=== PATIENT | female | born 1950 | race Caucasian/White ===

== ENCOUNTER → 2016-11-24 | Outpatient (CLI) | payer BC ==
[~2016-11-24] MED LIST: CALC500T83 PO; GLUC1CAP35 PO; MULT60CA PO; OMEG10007 PO; OXYC1TAB3 PO; PRLSR20 PO; TRIM100T PO
== END | disposition home or self-care (01) ==
LOC: C.PAPS 11:05
PROVIDERS: ATTEND Obstetrics & Gynecology
DX: Z01.419 Encounter for gynecological examination (general) (routine) without abnormal findings (principal)

== ENCOUNTER → 2017-05-03 | Outpatient (CLI) | payer OTHER, MEDICARE | END | disposition home or self-care (01) | LOC: C.LABBC 09:21 | PROVIDERS: ATTEND Physician Assistant | DX: Z00.00 Encounter for general adult medical examination without abnormal findings (principal) ==

== ENCOUNTER 2017-06-13 09:56 | Emergency (ER) | payer OTHER, MEDICARE ==
[~2017-06-13] VITALS: Ht 154.9 cm; Wt 69.8 kg
[2017-06-13 10:04] VITALS: TEMP 36.8; Ht 154.9 cm; Wt 69.8 kg
[2017-06-13] MEDS ORDERED: FENTANYL CITRATE INJ 50 MCG/1 ML 2 ML VIAL IV STA (10:29)
[2017-06-13] MEDS ORDERED: PRLSR20 PO (10:42)
[2017-06-13] MEDS ORDERED: TRIM100T PO (10:42)
[2017-06-13] MEDS ORDERED: CALC500T83 PO (10:42)
[2017-06-13] MEDS ORDERED: GLUC1CAP35 PO (10:42)
[2017-06-13] MEDS ORDERED: MULT60CA PO (10:42)
[2017-06-13] MEDS ORDERED: OMEG10007 PO (10:42)
--- NOTE | 2017-06-13 11:50 | DIAGNOSTIC IMAGING REPORT ---
L RIBS UNILATERAL WITH PA CHEST CLINICAL HISTORY: left lower rib pain s/p fall COMPARISON STUDY: Chest 01/17/2015. FINDINGS: Moderate dextroscoliosis of the thoracic spine. No pneumothorax. No pleural effusions. Moderate hiatus hernia, unchanged. The lungs are clear. The heart remains mildly enlarged. Slightly displaced left posterior 10th rib fracture. IMPRESSION: Slightly displaced left posterior 10th rib fracture. No pneumothorax. Electronically signed by: Devon Wellington M.D. 06/13/2017 11:49 AM Dictated Date/Time: 06/13/2017 11:47 AM
[2017-06-13] MEDS ORDERED: HYDROmorphone INJ 1 MG/ML SYR IV STA (12:08)
[2017-06-13] MEDS ORDERED: ONDANSETRON INJ 2 MG/ML 2 ML VIAL ONE (12:41)
[2017-06-13] MEDS ORDERED: OXYC1TAB3 PO (13:00)
--- NOTE | 2017-06-13 13:02 | EMERGENCY ROOM VISIT NOTE ---
History Report prepared by Josiah: Edson Skinner Under the Supervision of: Dr. Redd Montes M.D. First contact with patient: 10:21 Chief Complaint: RIB PAIN Stated Complaint: RIB PAIN History of Present Illness The patient is a 67 year old female who presents to the Emergency Room by EMS with complaints of constant left rib pain s/p fall occurring four days ago. She states that she was walking down stairs when she missed a step and fell onto a metal railing. She states that she then sneezed today and began experiencing significantly more pain. The patient also complains of nausea. Her pain is increased with deep breathing. She denies urinary symptoms, abdominal pain, headache, rashes, leg swelling, loss of continence, weakness, or neck pain. The patient has a history of kidney stones, but states that her symptoms do not feel similar. Source of History: patient Onset: Four days ago Position: other (left ribs) Timing: constant Modifying Factors (Worsening): breathing (deep) Associated Symptoms: + nausea, No headache, No abdominal pain, No urinary symptoms, No weakness, No rash Note: The patient denies leg swelling, or loss of continence. Review of Systems See HPI for pertinent positives & negatives. A total of 10 systems reviewed and were otherwise negative. Past Medical & Surgical Medical Problems: (1) Kidney stone (2) No Known Active Medical Problems Family History No pertinent family history stated. Social History Smoking Status: Never Smoker Marital Status: Housing Status: lives with family Current/Historical Medications Scheduled Calcium (Calcium), 500 MG PO DAILY Fish Oil ([place]-3), 1 CAP PO DAILY Kjfrrrjcaww-Inmrbvnveut-Lrt C- (Glucosamine Chondroitin), 1 CAP PO BID Multiple Vitamins W/ Minerals (Preservision Areds 2), 1 CAP PO BID Omeprazole (Prilosec), 20 MG PO DAILY Trimethoprim (Proloprim), 100 MG PO DIRECTED Scheduled PRN Oxycodone Immediate Rel Tab (Roxicodone Ir), 1-2 TAB PO Q4H PRN for Severe Pain Allergies Coded Allergies: Sulfa Antibiotics (Unverified Allergy, Unknown, HIVES, 06/13/17) Nitrofurantoin (Unverified Adverse Reaction, Severe, ALL OVER BODY ACHES, 06/13/17) Physical Exam Vital Signs Date Time Temp Pulse Resp B/P (MAP) Pulse Ox O2 Delivery O2 Flow Rate FiO2 06/13/17 13:27 73 18 114/78 94 Room Air 06/13/17 11:39 79 20 134/72 97 Room Air 06/13/17 10:08 79 06/13/17 10:04 36.8 84 20 161/94 97 Room Air Physical Exam GENERAL: Patient is uncomfortable appearing and in moderate distress. HEENT: No acute trauma, normocephalic atraumatic, mucous membranes moist, no nasal congestion, no scleral icterus. NECK: No stridor, no adenopathy, no meningismus, trachea is midline. LUNGS: No dyspnea. Clear to auscultation and equal bilaterally. No wheeze, no rhonchi. HEART: Regular rate and rhythm. No murmurs, rubs, gallops appreciated. ABDOMEN: Soft, nontender, bowel sounds positive, no masses appreciated, no peritonitis. BACK: No midline tenderness, no CVA tenderness MUSCULOSKELETAL: Severe tenderness of the left lower lateral ribs. Normal motion all extremities, no cyanosis, no edema. NEUROLOGIC: Alert and oriented, no acute motor or sensory deficits, no focal weakness, cranial nerves grossly intact. SKIN: No rash, no jaundice, no diaphoresis. Medical Decision & Procedures ER Provider Diagnostic Interpretation: Radiology results and stated below per my review and radiologist interpretation: L RIBS UNILATERAL WITH PA CHEST FINDINGS: Moderate dextroscoliosis of the thoracic spine. No pneumothorax. No pleural effusions. Moderate hiatus hernia, unchanged. The lungs are clear. The heart remains mildly enlarged. Slightly displaced left posterior 10th rib fracture. IMPRESSION: Slightly displaced left posterior 10th rib fracture. No pneumothorax. Electronically signed by: Devon Wellington M.D. 06/13/2017 11:49 AM Medications Administered Medications (Trade) Dose Ordered Sig/Edu Route Start Time Stop Time Status Last Admin Dose Admin Fentanyl Citrate (Fentanyl Inj) 50 mcg NOW STAT IV 06/13/17 10:29 06/13/17 10:33 DC 06/13/17 10:51 50 MCG Hydromorphone HCl (Dilaudid Inj) 1 mg NOW STAT IV 06/13/17 12:08 06/13/17 12:10 DC 06/13/17 12:28 1 MG Ondansetron HCl (Zofran Inj) 4 mg STK-MED ONCE .ROUTE 06/13/17 12:41 06/13/17 12:42 DC 06/13/17 12:45 4 MG Ondansetron HCl (ZOFRAN ODT 4MG Home Pack) 1 homepack STK-MED ONCE .ROUTE 06/13/17 13:19 06/13/17 13:20 DC 06/13/17 13:19 1 HOMEPACK Ondansetron HCl (Zofran Odt) 4 mg STK-MED ONCE .ROUTE 06/13/17 13:19 06/13/17 13:20 DC 06/13/17 13:24 4 MG ED Course 1022: The patient was evaluated in room B8. A complete history and physical exam was performed. 1029: Ordered Fentanyl Inj 50 mcg IV. 1205: I reassessed the patient. Her pain is returning, but she overall feels better. 1208: Ordered Dilaudid Inj 1 mg IV. 1241: Ordered Zofran Inj 4 mg IV. 1255: Reevaluated the patient. She feels much better, but states that she feels numb. Discussed results and discharge instructions: she verbalized understanding and agreement. The patient is ready for discharge. Medical Decision Differential: fracture, dislocation, soft tissue injury, spleen/kidney injury, pneumothorax, amongst other pathologies entertained. 67 yr old female with left rib injury a few days ago, acutely worse after sneezing. She has 10th rib fracture on imaging without pnthorax. No evidence of intraabdominal injury at this time. She is feeling much better with IV narcotics (nausea vomiting though with dialudid). Discussed care of ribs, discussed restrictions/risks narcotics. Reviewed symptoms RTED. Medication Reconcilliation Current Medication List: was personally reviewed by me Blood Pressure Screening Patient's blood pressure: Elevated blood pressure Blood pressure disposition: Referred to PCP Impression Primary Impression: Left rib fracture Scribe Attestation The scribe's documentation has been prepared under my direction and personally reviewed by me in its entirety. I confirm that the note above accurately reflects all work, treatment, procedures, and medical decision making performed by me. Departure Information Dispostion Home / Self-Care Prescriptions Oxycodone Immediate Rel Tab (ROXICODONE IR) 5 Mg Tab 1-2 TAB PO Q4H Y for Severe Pain, #20 TAB Prov: Redd Montes M.D. 06/13/17 Referrals Tigre Aquino M.D. (PCP) Patient Instructions ED Fx Rib, [facility] Additional Instructions You have received a narcotic pain medication prescription. These medications may cause drowsiness and should not be used with other sedative medications. Do not drive, drink alcohol, perform dangerous activities, nor make important decisions after taking these medications. FPC use or inappropriate use may lead to addiction. These medications can cause constipation. Problem Qualifiers Primary Impression: Left rib fracture Encounter type: initial encounter Rib fracture type: single rib Fracture type: closed Qualified Codes: S22.32XA - Fracture of one rib, left side, initial encounter for closed fracture
[2017-06-13] MEDS ORDERED: ONDANSETRON 4MG OD TAB ONE (13:19)
[2017-06-13] MEDS ORDERED: ONDANSETRON HOME PACK 4MG OD TAB ONE (13:19)
[2017-06-13] MEDS ORDERED: NURSING VERBAL MED ORDER ONE (13:30)
[2017-06-13 14:00] VITALS: BP 114/78; PULSE 73; O2SAT 94
[2017-06-13] MEDS ORDERED: DiphenhydrAMINE HCL 50 MG/ML VIAL IM STA (14:03)
== END 2017-06-13 14:29 | disposition home or self-care (01) ==
LOC: EDBD 10:04 → C.EDB 10:05
DX: S22.32XA Fracture of one rib, left side, initial encounter for closed fracture (principal); W10.9XXA Fall (on) (from) unspecified stairs and steps, initial encounter; Y93.01 Activity, walking, marching and hiking; Z87.442 Personal history of urinary calculi

== ENCOUNTER → 2017-11-22 | Outpatient (CLI) | payer OTHER, MEDICARE ==
--- NOTE | 2017-11-22 14:24 | MAMMOGRAPHY REPORT ---
BILATERAL DIGITAL SCREENING MAMMOGRAM TOMOSYNTHESIS WITH CAD: 11/22/2017 CLINICAL HISTORY: Routine screening. TECHNIQUE: Breast tomosynthesis in addition to standard 2D mammography was performed. Current study was also evaluated with a Computer Aided Detection (CAD) system. COMPARISON: Comparison is made to exams dated: 07/21/2015 mammogram, 07/22/2016 mammogram, 4 mammogram, 06/14/2013 mammogram, 06/12/2012 mammogram, and 05/27/2011 mammogram - [facility]. BREAST COMPOSITION: There are scattered areas of fibroglandular density in both breasts. FINDINGS: The parenchymal pattern is unchanged. There are scattered benign rim calcifications bilat erally. No developing mass, architectural distortion or cluster of suspicious microcalcifications is seen in either breast. IMPRESSION: ACR BI-RADS CATEGORY 2: BENIGN There is no mammographic evidence of malignancy. A 1 year screening mammogram is recommended. The pa tient will receive written notification of the results. Approximately 10% of breast cancers are not detected with mammography. A negative mammographic report should not delay biopsy if a clinically suggestive mass is present. Angella Modi M.D. ay/:11/22/2017 11:12:04 Baggage Agent Supervisor: Beto LANCE(R)(M), [facility] letter sent: Normal 1/2 BI-RADS Code: ACR BI-RADS Category 2: Benign
== END | disposition home or self-care (01) ==
LOC: C.MAMM 09:34
PROVIDERS: ATTEND Obstetrics & Gynecology
DX: Z12.31 Encounter for screening mammogram for malignant neoplasm of breast (principal)

== ENCOUNTER 2023-06-16 08:17 | Observation (INO) ==
--- NOTE | 2023-06-14 15:14 | Anesthesiology Consultation ---
Date of Service June 14, 2023 Assessment & Plan (1) Encounter for pre-operative examination: - Infectious disease screening: Per assessment on 06/08/23: No known infectious disease contacts or current infectious disease symptoms. No noted Covid positive test result in past 90 days. - PCP visit (06/13/23 [facility]): "EGD showed normal esophagus, large hiatal hernia.. Plan to get repaired with [facility] on 06/16/23.. Anticipate weight loss with surgery due to expected modified diet" - Cardiology visit (06/14/23 [facility]): "Currently, the patient is doing well -- she noticed more shortness of breath/exertional dyspnea back in the summer time when it was hot and humid, but now she is not having these variable degrees of exertional dyspnea. Patient has not experienced any angina pectoris or anginal equivalent symptoms, overt signs or symptoms of heart failure, nor has she had any symptoms suggestive of dysrhythmia.. Her blood pressure is well controlled. She is tolerating her current medical regimen without adverse side effects. She has not had any low blood pressures or positional lightheadedness on her current medications. Recommend the followin. Continue Diltiazem CD 300 mg daily. 2. Continue Toprol XL 150 mg daily 3. Continue [place] 3 fish oil capsules daily. 4. Continue all other medications as listed. 5. Continue walking. 6. Patient is aware that she should take her beta-stan and calcium channel stan the morning of surgery with sips of water. 7. Avoid dehydration, especially around the time of her upcoming hiatal hernia repair -- as this will worsen her LVOT gradient/obstruction.. Patient is scheduled undergo surgical repair of her large hiatal hernia on 06/16/23, 2 days from now." Chart Review Chart Review: Acceptable Risk for Surgery and Patient NOT seen in Pre Admission Testing History Surgery Operation Date: 06/16/23 09:55 Proposed Procedures p Laparoscopic Hiatal Hernia Repair with Fundoplication - Dwight [place], Height/Weight Height: 4 ft 11 in Weight: 59.874 kg Allergies Allergy/AdvReac Type Severity Reaction Status Date / Time hydromorphone Allergy Intermediate Vomiting Verified 06/14/23 11:37 Sulfa (Sulfonamide Allergy Intermediate Hives Verified 06/14/23 15:03 Antibiotics) nitrofurantoin AdvReac Severe Diffuse Verified 06/14/23 15:03 body aches amlodipine AdvReac Intermediate Jittery Verified 06/14/23 15:03 Medications Home Medications Medication Instructions Recorded Confirmed Last Taken cholecalciferol (vitamin D3) 50 2,000 unit PO QAM 11/16/18 06/14/23 05/01/23 mcg (2,000 unit) capsule (Vitamin D3) omega 3 350 mg-dha 235 mg-epa 90 1 cap PO QAM 11/16/18 06/14/23 05/01/23 mg-fish oil 597 mg capsule,delay rel ([place]-3) glucosamine-chondroitin 500 mg-400 1 tab PO BID 05/01/19 06/14/23 05/01/23 mg tablet qkpihgqk-pfk-omndcr 5 mg-zeaxanth 2 cap PO BID #30 caps 02/02/21 06/14/23 05/01/23 1 mg-bilberry 7.5 mg-herbal capsule (Macular Health Formula) calcium 600 mg capsule 600 mg PO QAM 01/06/22 06/14/23 05/01/23 trimethoprim 100 mg tablet 100 mg PO ONCE PRN postcoital #90 04/27/23 06/14/23 Unknown tabs diltiazem HCl 300 mg 300 mg PO QAM 06/08/23 06/14/23 Unknown capsule,extended release 24 hr metoprolol succinate 100 mg 100 mg PO QAM 06/08/23 06/14/23 Unknown tablet,extended release 24 hr metoprolol succinate 50 mg 50 mg PO QAM 06/08/23 06/14/23 Unknown tablet,extended release 24 hr Past Medical History Medical History Hypertrophic cardiomyopathy Follows with [facility] cardio Arthritis Hx of recurrent urinary tract infection Follows with Dr. Real History of kidney stones GERD (gastroesophageal reflux disease) History of TMJ disorder resolved Macular degeneration History of COVID-19 04/2021- sinus congestion > "resolved" 04/11/23 (home test)- mild symptoms, tx w/paxlovid > "resolved" Hiatal hernia Hyperlipidemia Per records, patient denies Medullary sponge kidney Osteopenia Paroxysmal supraventricular tachycardia Premature ventricular contractions Thoracogenic scoliosis Past Family History Family History Mother , AGE 77 Diabetes Stroke Sister Breast cancer Cancer BREAST Other No family history of adverse response to anesthesia Denies family history of Ovarian cancer Prostate cancer Myocardial infarction Lung cancer Colorectal cancer Past Surgical History Surgical History History of colonoscopy [place] teeth removed History of cataract surgery R/L H/O tubal ligation History of lithotripsy Social History Smoking Status: Never smoker Do You Dip or Chew Tobacco: No Hx Alcohol Use: Yes Alcohol type: wine alcohol intake frequency: holidays/special occasions only Hx Substance Use: No substance use type: does not use Lab Results Anesthesia Preop Results Results Anesthesia Widget: WBC 5.28 K/ul (4.8-10.8) 06/07/23 Hgb 12.3 g/dl (12.0-16.0) 06/07/23 Hct 39.5 % (37.0-47.0) 06/07/23 Plt 188 K/uL (130-400) 06/07/23 Na 138 mmol/L (136-145) 06/07/23 K 4.3 mmol/L (3.5-5.1) 06/07/23 Cl 107 mmol/L (98-107) 06/07/23 CO2 26 mmol/L (21-32) 06/07/23 BUN 18 mg/dl (6-23) 06/07/23 Creat 0.79 mg/dl (0.6-1.2) 06/07/23 Glucose Level 85 mg/dl (70-99(Fasting)) 06/07/23 TSH 2.743 uIu/ml (0.300-4.500) 06/07/23 HA1c 5.4 % (4.5-5.6) 06/07/23 Testing Electrocardiogram Date: 12/17/22 NSR at 80bpm. iRBBB. Echocardiogram Date: 04/08/23 LVEF > 70%. No RWMA. Severe cLVH. Mitral valve systolic anterior motion with dynamic LVOT obstruction (rest 17mmhg, valsalva 36mmhg- may be underestimate). Mild to moderate MR. Normal estimated PA and RA pressures. Stress Test Date: 01/10/23 Type: exercise Negative exercise stress echo/EKG for ischemia at 97% MPHR. Blunted BP response to exercise. Poor exercise tolerance. Systolic anterior motion of the mitral leaflet noted with stress. Borderline LVOT gradient at rest. Severe LVOT gradient noted following stress. EF 65-70%. 4.5 METS.
[~2023-06-16 08:17] MED LIST changes: -CALC500T83 PO; -GLUC1CAP35 PO; +LR 15ML/HR IV SCH; -MULT60CA PO; -OMEG10007 PO; -OXYC1TAB3 PO; -PRLSR20 PO; -TRIM100T PO; +ceFAZolin 2000MG 2,000 MG/15 ML SYR IV SCH
--- NOTE | 2023-06-16 08:58 | History & Physical Report ---
Date of Service June 16, 2023 Assessment & Plan (1) Large hiatal hernia: Plan: We had had a long discussion regarding her diagnosis potential benefits of repair postoperative expectations going forward as well as potential risks. I have answered all of her questions this morning. We will proceed today with laparoscopic repair of her hiatal hernia, partial gastric fundoplication, and gastropexy. She agrees with the plan. History of Present Illness Primary Care Provider: Rani Vyas Is here for repair of her known hiatal hernia. There is been no changes to her health history since I seen her last in the office. Allergies Allergy/AdvReac Type Severity Reaction Status Date / Time hydromorphone Allergy Intermediate Vomiting Verified 06/16/23 08:41 Sulfa (Sulfonamide Allergy Intermediate Hives Verified 06/16/23 08:41 Antibiotics) nitrofurantoin AdvReac Severe Diffuse Verified 06/16/23 08:41 body aches amlodipine AdvReac Intermediate Jittery Verified 06/16/23 08:41 Home Medications Medication Instructions Recorded Confirmed Type cholecalciferol (vitamin D3) 50 2,000 unit PO QAM 11/16/18 06/16/23 History mcg (2,000 unit) capsule (Vitamin D3) omega 3 350 mg-dha 235 mg-epa 90 1 cap PO QAM 11/16/18 06/16/23 History mg-fish oil 597 mg capsule,delay rel ([place]-3) glucosamine-chondroitin 500 mg-400 1 tab PO BID 05/01/19 06/16/23 History mg tablet taejrzth-fwj-biqfbi 5 mg-zeaxanth 2 cap PO BID #30 caps 02/02/21 06/16/23 Rx 1 mg-bilberry 7.5 mg-herbal capsule (Macular Health Formula) calcium 600 mg capsule 600 mg PO QAM 01/06/22 06/16/23 History trimethoprim 100 mg tablet 100 mg PO ONCE PRN postcoital #90 04/27/23 06/16/23 Rx tabs diltiazem HCl 300 mg 300 mg PO QAM 06/08/23 06/16/23 History capsule,extended release 24 hr metoprolol succinate 100 mg 100 mg PO QAM 06/08/23 06/16/23 History tablet,extended release 24 hr metoprolol succinate 50 mg 50 mg PO QAM 06/08/23 06/16/23 History tablet,extended release 24 hr Past Med/Surg History Medical History Hypertrophic cardiomyopathy Follows with [facility] Arthritis Hx of recurrent urinary tract infection Follows with Dr. Real History of kidney stones GERD (gastroesophageal reflux disease) History of TMJ disorder resolved Macular degeneration History of COVID-19 04/2021- sinus congestion > "resolved" 04/11/23 (home test)- mild symptoms, tx w/paxlovid > "resolved" Hiatal hernia Hyperlipidemia Per records, patient denies Medullary sponge kidney Osteopenia Paroxysmal supraventricular tachycardia Premature ventricular contractions Thoracogenic scoliosis Surgical History History of colonoscopy [place] teeth removed History of cataract surgery R/L H/O tubal ligation History of lithotripsy Family History Mother , AGE 77 Diabetes Stroke Sister Breast cancer Cancer BREAST Other No family history of adverse response to anesthesia Denies family history of Ovarian cancer Prostate cancer Myocardial infarction Lung cancer Colorectal cancer Social History Smoking Status: Never smoker Second Hand Exposure: No; Do You Dip or Chew Tobacco: No; Tobacco Cessation Education Requested by Patient: No Hx Alcohol Use: Yes Alcohol type: wine Alcohol Intake Frequency: 2-4 x/Month Hx Substance Use: No Preferred Language: Tajik Communication Ability: Effective Visual Impairment: Partially Limited Hearing Ability: Normal Improvement Spec Required: No Beliefs That Will Affect Care: None marital status: Current Living Situation: Spouse current occupational status: retired How many Children do You have: 2 Other Information That Helps Us Care for You: No Feels Safe at Home: Yes Safety Concerns: Feels Safe At This Time Childhood Exposure to Second-Hand Smoke: No Diet: regular caffeine: Yes during the past year weight has: remained stable Dental Care, Regularly: Yes Physical Activity Frequency: Daily Seatbelt Use: always Sunscreen Use: Yes Assistive Devices: Glasses Review of Systems All systems reviewed & are unremarkable except as noted in HPI & below Physical Exam Constitutional: WD/WN, vitals as above no acute distress and not ill appearing Eyes: PERRL, conjunctivae normal, anicteric sclerae EOM intact bilaterally ENMT: external ear and nose normal, oropharynx normal Ears: no hearing impairment Neck: trachea midline, no thyromegaly Respiratory: normal respiratory effort; no respiratory distress and does not use accessory muscles Cardiovascular: Rate/Rhythm: regular rate and regular rhythm Gastrointestinal (Abdomen): normal bowel sounds, soft, nontender, no hepatosplenomegaly Skin: no rashes, warm and dry Psychiatric: Orientation: alert, oriented x 3 and cooperative Results & Data Vital Signs (Past 12 Hours) Vital Signs Temp Pulse Resp BP Pulse Ox O2 Del Method 06/16/23 08:36 36.5 C 56 L 20 139/71 97 Room Air
[2023-06-16] MEDS ORDERED: ATROPINE SULFATE 0.1 MG/ML 10ML SYR IV PRN (09:22)
[2023-06-16] MEDS ORDERED: ePHEDrine sulfate 50 MG/ML AMP IV PRN (09:22)
[2023-06-16] MEDS ORDERED: ONDANSETRON INJ 2 MG/ML 2 ML VIAL IV PRN (09:22)
[2023-06-16] MEDS ORDERED: ROCURONIUM BROMIDE 10 MG/ML 5 ML VIAL IV ONE ×2 (09:27→12:11)
[2023-06-16] MEDS ORDERED: PROPOFOL IV EMULSION 10 MG/ML 20 ML VIAL IV ONE (09:27)
[2023-06-16] MEDS ORDERED: ONDANSETRON INJ 2 MG/ML 2 ML VIAL ONE (09:27)
[2023-06-16] MEDS ORDERED: LIDOCAINE 2% 2 ML VIAL/AMP(20MG/ML) INFIL ONE (09:27)
[2023-06-16] MEDS ORDERED: fentaNYL citrate PF 100 MCG/2 ML VIAL ONE (09:27)
[2023-06-16] MEDS ORDERED: DEXAMETHASONE SOD INJ 4 MG/ML VIAL ONE (09:27)
[2023-06-16] MEDS ORDERED: MIDAZOLAM HCL 1 MG/ML 2ML VIAL ONE (10:08)
[2023-06-16] MEDS ORDERED: BUPIVACAINE/EPINEPHRINE 0.5% MPF 1:200,000 30 ML VIAL ONE (10:08)
[2023-06-16] MEDS ORDERED: ACETAMINOPHEN 1000 MG/100 ML IV IV ONE (10:10)
[2023-06-16] MEDS ORDERED: PHENYLEPHRINE HCL 10 MG/ML VIAL ONE (10:11)
[2023-06-16] MEDS ORDERED: KETAMINE HCL 10MG/ML SYR ONE (10:29)
[2023-06-16] MEDS ORDERED: PHENYLEPHRINE 100MCG/ML 10ML SYR IV ONE (11:06)
[2023-06-16] MEDS ORDERED: VASOPRESSIN 20 UNIT/ML VIAL ONE (11:12)
[2023-06-16] MEDS ORDERED: SUGAMMADEX SODIUM 200 MG/2 ML VIAL IV ONE (11:38)
[2023-06-16] MEDS ORDERED: ACETAMINOPHEN W/CODEINE #3 1 TAB PO PRN (12:03)
[2023-06-16] MEDS ORDERED: MoRPHine SULFATE 4 MG/ML 1 ML CARP\\VIAL IM PRN (12:06)
[2023-06-16] MEDS ORDERED: oxyCODONE/ACETAMINOPHEN 5mg/325mg TAB PO PRN ×2 (12:07)
[2023-06-16] MEDS: fentaNYL citrate PF 100 MCG/2 ML VIAL IV PRN ×4 (12:18→12:53)
[2023-06-16] MEDS ORDERED: HYDROmorphone INJ 0.5 MG/0.5 ML SYR IV STA (13:00)
[2023-06-16] MEDS ORDERED: HYDROmorphone INJ 0.5 MG/0.5 ML SYR ONE (13:01)
--- NOTE | 2023-06-16 13:15 | Anesthesiology Progress Note ---
Date of Service June 16, 2023 Anesthesia Post Procedure Vital Signs Vital Signs: Temp Pulse Pulse Resp BP Pulse Ox O2 Del Method 06/16/23 13:10 36.5 C 51 L 13 122/64 95 Nasal Cannula 06/16/23 13:00 36.5 C 54 L 10 L 133/63 95 Nasal Cannula 06/16/23 12:50 50 L 11 L 139/70 95 Nasal Cannula 06/16/23 12:40 52 L 12 130/67 95 Nasal Cannula 06/16/23 12:30 52 L 19 138/69 99 Nasal Cannula 06/16/23 12:20 54 L 23 133/68 99 Oxymask 06/16/23 12:10 55 L 23 137/73 100 Oxymask 06/16/23 12:04 36 C L 53 L 22 134/65 100 Oxymask 06/16/23 08:36 36.5 C 56 L 20 139/71 97 Room Air O2 Flow Rate 06/16/23 13:10 2 06/16/23 13:00 2 06/16/23 12:50 2 06/16/23 12:40 2 06/16/23 12:30 2 06/16/23 12:20 4 06/16/23 12:10 9 06/16/23 12:04 9 06/16/23 08:36 Pain Intensity Abdomen: Pain Intensity: 8 Transfer of Care Handoff Completed per policy Notes Mental Status: alert / awake / arousable Patient Amnestic to Procedure: Yes Nausea / Vomiting: adequately controlled Pain: adequately controlled Airway Patency, RR, SpO2: stable & adequate BP & HR: stable & adequate Hydration State: stable & adequate Anesthetic Complications: no major complications apparent and Pt Satisfied with anesthetic care
[2023-06-16] MEDS ORDERED: ACETAMINOPHEN 325 MG TAB PO PRN (13:42)
[2023-06-16] MEDS: LACTATED RINGER'S 1,000 ML IV SCH ×2 (13:48→21:33)
--- NOTE | 2023-06-16 15:47 | Operative Report ---
PG Post Operative Report Pre & Post Diagnosis Operation Date: 06/16/23 09:55 Pre-Op Diagnosis: Hiatal Hernia Post-Op Diagnosis: Hiatal Hernia I identified the patient and participated in the time-out.: Yes Procedure Operation Date: 06/16/23 09:55 Actual Procedures p Laparoscopic Hiatal Hernia Repair with Parital Fundoplication, posterior gastropexy, enterolysis(Not Applicable) - Dwight Palomino DO Surgeon Dwight Palomino DO Flour Inspector jessica torres Estimated Blood Loss 10 Findings Consistent with Post-Op Diagnosis Specimens none Description of Procedure After informed consent was obtained the patient was taken to the operating room and placed in supine position. After successful intubation the abdomen was sterilely prepped and draped in usual fashion. I Made a supraumbilical incision with 11 blade scalpel and carried this down through the soft tissue using cautery. Anterior fascia was opened with cautery and 2 #0 Vicryl stay sutures were placed. Peritoneum was entered with blunt finger penetration and a finger sweep performed. A 12 m trocar was placed and the abdomen was insufflated to 18 mmHg. Laparoscope was inserted and the abdomen examined in 360 degrees. There were some adhesions from the omentum and transverse colon to the anterior abdominal wall. I was able to place a right flank 5 mm port, a right upper quadrant 5 mm port ,subxiphoid 12 mm port and a left upper quadrant 5 mm port. We used a harmonic scalpel to take down adhesions. The liver retractor was used throughout the case to elevate the left lobe of the liver for exposure. Once we elevated the liver there was a large hiatal hernia with gastric incarceration. Approximately 50% of the stomach was incarcerated within the defect. We were able to manually reduce it. I began by taking down the gastrohepatic ligament medially using the harmonic scalpel. We continued up along the right radha of the diaphragm and took down the hernia sac in 360 degrees. We carried over to the left radha of the diaphragm until the entire sac was removed. Next we had anesthesia pass a 50 [place]ic bougie which she was able to quite easily. Next I reapproximated the right and left crura of the diaphragm. I began by placing a posterior stitch using Endo Stitch device with 0 Surgidac. I then completed the closure by placing sutures anteriorly again using 0 Surgidac. Once the diaphragmatic hernia was completely closed I then took down the top 3 or 4 short gastric vessels using the harmonic scalpel. A retrogastric window was made manolo wilcox. I was able to grasp the fundus of the stomach and pulled through the retrogastric window. I was able to do this quite easily. I was able to easily perform a shoeshine test. Posterior gastropexy was performed again using 0 Surgidac and securing the posterior aspect of the fundus to the right crura of the diaphragm. I then completed the 270 partial wrap given using 0 Surgidac and securing the preesophageal fascia/anterior portion of the stomach first to the fundus of the stomach on the medial side and then to the body of the stomach on the lateral side. We then removed the bougie which was easily withdrawn. The wrap was nice and floppy. The repair appeared solid. There was adequate hemostasis. No other abnormal was identified. The liver retractor and trocars were all removed under direct vision. The fascia of the camera port was closed in [id number] fashion. all the wounds were irrigated and closed using 4 Monocryl in subcuticular technique. Marcaine with epinephrine was injected for postoperative analgesia and skin glue used as a dressing. Patient was awakened extubated and transferred to recovery in stable condition. My nurse practitioner was present for the entire case was instrumental in providing exposure, assisting with the camera, wound closure and dressing placement. I attest to the content of the Intraoperative Record and any orders documented therein. Any exceptions are noted below.
[2023-06-16] MEDS: MoRPHine SULFATE 4 MG/ML 1 ML CARP\\VIAL IV PRN (16:40)
[2023-06-16] MEDS: ONDANSETRON INJ 2 MG/ML 2 ML VIAL IV PRN (20:23)
[2023-06-16] MEDS ORDERED: MoRPHine SULFATE 2 MG/ML CARP IV PRN (23:25)
[2023-06-17] MEDS: MoRPHine SULFATE 4 MG/ML 1 ML CARP\\VIAL IV PRN (03:21)
[2023-06-17 06:26] LABS: Basophils # (auto) 0.01 K/uL (0.00-0.20); Basophils % (auto) 0.1 %; Hematocrit (blood only) 32.9 % (37.0-47.0); Hemoglobin 10.2 g/dl (12.0-16.0); Immature Granulocytes # (auto) 0.04 K/uL (0.01-0.20); Immature Granulocytes % (auto) 0.4 %; Lymphocytes # (auto) 0.78 K/uL (1.20-3.40); Lymphocytes % (auto) 8.7 %; Mean Corpuscular Hemoglobin 24.8 pg (25.0-34.0); Mean Corpuscular Volume 79.9 fL (80.0-100.0); Mean Platelet Volume 12.9 fL (9.4-12.4); Monocytes % (auto) 10.1 %; Neutrophils # (auto) 7.19 K/uL (1.40-6.50); Neutrophils % (auto) 80.7 %; Platelet Count 160 K/uL (130-400); RDW Coefficient of Variation 15.1 % (11.5-14.5); RDW Standard Deviation 43.8 fL (36.4-46.3); Red Blood Count 4.12 M/uL (4.20-5.40); White Blood Count 8.92 K/ul (4.8-10.8)
[2023-06-17 06:39] LABS: BUN Creatinine Ratio 19.7 (10-20); Calcium 8.7 mg/dl (8.6-10.3); Est GFR (African American) 99.3 ml/min; Est GFR (Non-African American) 85.7 ml/min; Potassium 4.4 mmol/L (3.5-5.1)
--- NOTE | 2023-06-17 07:43 | Surgery Progress Note ---
Date of Service June 17, 2023 Assessment & Plan (1) Diaphragmatic hernia without obstruction: Plan: POD 1 Laparoscopic Hiatal Hernia Repair with Partial Fundoplication, posterior gastropexy, enterolysis With Dr. Palomino Patient is having expected post operative abdominal pain Abdomen soft , tender non-distended Patient able to tolerate clears, reports this has been going better than last night Encouraged small frequent sips , will advance to full liquids and see how she tolerates Patient concerned with swallowing medication, has not taken AM pills yet. VSS CBC , BMP WNL Encouraged incentive spirometry Will tentatively place discharge for today pending patient is able to tolerate full liquids and swallowing medication. Patient verbalized understanding pt to continue full liquids at home until cleared by her surgeon Outpatient follow in 2 weeks Patient to call with questions or concerns, verbalized return precautions (N/V, unable to swallow, Fever/chills, incisional drainage/infection ) Admission and Anticipated Discharge Date Admission Date: June 16, 2023 Subjective Pt reports some dry heaves last night while OOB and after pain administration Currently no nausea Pain a 6/10 dullness across upper abdomen, TTP Denies CP, SOB, flatus Review of Systems Constitutional: no fever and no chills Eyes: + corrective lenses Respiratory: no dyspnea Cardiovascular: no chest pain Gastrointestinal: + abdominal pain; no nausea and no vomit ing Musculoskeletal: no muscle weakness and no problem reported Physical Exam Physical Exam: alert oriented pleasant Constitutional: well developed, cooperative and comfortable; no acute distress Respiratory: normal respiratory effort and able to speak in complete sentences; no respiratory distress Cardiovascular: Rate/Rhythm: regular rate Gastrointestinal (Abdomen): Inspection/Auscultation: + abdominal surgical incision (port sites CDI dermabond mild ecchymosis midline incision); abdomen not distended Percussion/Palpation: + abdomen tender and abdomen soft; abdomen not rigid Musculoskeletal: no cyanosis or clubbing, extremities motor strength 5/5 Results & Data Vital Signs (Past 12 Hours) Vital Signs Temp Pulse Resp BP Pulse Ox O2 Del Method O2 Flow Rate 06/17/23 03:24 98.4 F 71 18 142/77 H 93 Room Air 06/16/23 23:43 98.4 F 70 16 135/79 94 Room Air 06/16/23 19:32 98.2 F 63 18 158/81 H 94 Nasal Cannula 2 PG Care Time/CCT Total # of Minutes Spent Total Time Spent with Patient: Total time spent is greater than 50% in coordination of care (as documented) at patient's floor/unit and/or counseling patient: Coding Level of Care Code 05301 Post Operative Follow-Up Diagnoses Diaphragmatic hernia without obstruction K44.9
[2023-06-17] MEDS: ONDANSETRON INJ 2 MG/ML 2 ML VIAL IV PRN (08:22)
[2023-06-17] MEDS ORDERED: METOPROLOL SUCC 50MG EXT REL TAB PO SCH ×2 (09:00)
[2023-06-17] MEDS ORDERED: dilTIAZem HCL 300 MG CAPCR PO SCH (09:00)
[2023-06-17] MEDS: LACTATED RINGER'S 1,000 ML IV SCH (09:38)
--- NOTE | 2023-06-20 12:07 | Discharge Summary ---
Date of Service June 17, 2023 Admission HPI Per Admitting Provider Is here for repair of her known hiatal hernia. There is been no changes to her health history since I seen her last in the office. Principal Diagnosis Diaphragmatic hernia without obstruction Discharge Exam alert oriented pleasant Constitutional: well developed, cooperative and comfortable; no acute distress Respiratory: normal respiratory effort and able to speak in complete sentences; no respiratory distress Cardiovascular: Rate/Rhythm: regular rate Gastrointestinal (Abdomen): Inspection/Auscultation: + abdominal surgical incision (port sites CDI dermabond mild ecchymosis midline incision); abdomen not distended Percussion/Palpation: + abdomen tender and abdomen soft; abdomen not rigid Musculoskeletal: no cyanosis or clubbing, extremities motor strength 5/5 Discharge Data Allergies Allergy/AdvReac Type Severity Reaction Status Date / Time hydromorphone Allergy Intermediate Vomiting Verified 06/16/23 08:41 Sulfa (Sulfonamide Allergy Intermediate Hives Verified 06/16/23 08:41 Antibiotics) nitrofurantoin AdvReac Severe Diffuse Verified 06/16/23 08:41 body aches amlodipine AdvReac Intermediate Jittery Verified 06/16/23 08:41 Procedures Performed Operation Date: 06/16/23 09:55 Actual Procedures p Laparoscopic Hiatal Hernia Repair with Parital Fundoplication, posterior gastropexy, enterolysis(Not Applicable) - Dwight Palomino, DO Hospital Course (1) Diaphragmatic hernia without obstruction: You underwent an elective Laparoscopic Hiatal Hernia Repair with Partial Fundoplication, posterior gastropexy, enterolysis With Dr. Palomino on 06/16/23. You were admitted over night to the hospital for observation. On 06/17/23 you were having expected post operative abdominal pain that was controlled. Your abdomen was soft , tender non-distended. You were able to tolerate a full liquid diet and swallow your medication. You were Encouraged to continue small frequent sips of liquids for hydration. Your VSS, CBC , BMP, were WNL. You were instructed to Continue full liquids at home until cleared by her surgeon, Outpatient follow in 2 weeks, Call with questions or concerns, verbalized return precautions (N/V, unable to swallow, Fever/chills, incisional drainage/infection ), and discharged that day 06/17/23 Total Time Total Time Spent Total Time Spent (In Minutes): 20 Discharge Plan Discharge Items Patient Disposition: Home - Self-Care Reason For Visit: Hiatal Hernia Discharge Diagnosis: Laparoscopic Hiatal Hernia Repair with Fundoplication Activity: As commented below Lifting: No more than 10 pounds Bathing Comment: you can shower, no baths or pools for 2 weeks Exercise/Sports: Wait until after follow-up appointment Driving/Machine Use: no driving if taking narcotic pain medication Non-emergency contact: Surgeon Call non-emergency contact if: you have any medication questions, your symptoms worsen, your pain is worsening, your temperature is above 101.5, your wound has increased redness, your wound has increased drainage and your wound pain has increased Follow-up/Referrals: Dwight Palomino DO [Surgeon] - 06/29/23 10:45 am (call office for a follow up in 2 weeks ) Rani Vyas DO [Primary Care Provider] - Diet: Full liquid Addtl Attending Provider Instructions: You have surgical glue called dermabond on your surgical site incisions. You may shower with this on. This will tend to come off within a couple of weeks. Do not pick at it. Continue full liquid diet as discussed with surgeon You may crush or break your medication that is a tablet if needed to assist with swallowing. Do not crush or break capsules. SPECIAL CARE INSTRUCTIONS: * May use ibuprofen for pain as tolerated. * Expect some swelling and bruising. Call your doctor if: Nausea/vomiting unable to swallow * Temperature above 101 degrees * Pain not relieved by pain medicine ordered * There is increased drainage or redness from any incision * You have any unanswered questions or concerns [phone]. FOLLOW UP VISIT: If not already scheduled, please call the office for a follow-up visit. OFFICE PHONE NUMBER: Office Pending Studies at Discharge: No Stand-Alone Forms: My [facility] [employer] Pain - Opioid Pain Management Medications and DC Order Prescriptions: New oxycodone-acetaminophen 5-325 mg tablet 1 - 2 tab PO .O3p-E3b MDD Max 6 tabs per day PRN (Reason: pain) Qty: 15 0RF ondansetron HCl 4 mg tablet 4 mg PO Q8H PRN (Reason: nausea and vomiting) 4 Days Qty: 7 0RF Rx Instructions: Take one tab by mouth every 8 hours as needed for nausea and vomiting. Continued Macular Health Formula 5-1-7.5 mg capsule 2 cap PO BID Qty: 30 0RF trimethoprim 100 mg tablet 100 mg PO ONCE PRN (Reason: postcoital ) Qty: 90 0RF Rx Instructions: after intercourse cholecalciferol (vitamin D3) [Vitamin D3] 2,000 unit Capsule 2,000 unit PO QAM [place]-3 350 mg-235 mg- 90 mg-597 mg Capsule,Delayed Release(Dr/Ec) 1 cap PO QAM glucosamine-chondroitin 500-400 mg tablet 1 tab PO BID calcium 600 mg Capsule 600 mg PO QAM metoprolol succinate 50 mg tablet extended release 24 hr 50 mg PO QAM Rx Instructions: Takes a total of 150mg daily. Take with a 100mg tablet of Metoprolol Succinate metoprolol succinate 100 mg tablet extended release 24 hr 100 mg PO QAM Rx Instructions: Takes a total of 150mg daily. Take with a 50mg tablet of Metoprolol Succinate diltiazem HCl 300 mg capsule,extended release 24hr 300 mg PO QAM Discharge Orders: Discharge Order (Routine); Ordered 06/17/23 Ordered By: Lashell Mclaughlin/Other Patient Handouts: Hiatal Hernia Repair Admission Data Admit Date/Time: 06/16/23 12:02 Attending Provider: Dwight Palomino Admit Provider: Dwight Palomino Primary Care Provider: Rani Vyas Other Interventions: Discharge Summary Assessment (RN) Last Done: 06/17/23 13:18 Coding Level of Care Code 13425 IN/OBS DISCH 30 MIN/LESS Diagnoses Diaphragmatic hernia without obstruction K44.9
== END 2023-06-17 14:40 | disposition home or self-care (01) ==
LOC: 3W 08:17 → ASU 08:17

== ENCOUNTER 2025-02-27 22:23 | Inpatient (IN) ==
[2025-02-27] MEDS: SODIUM CHLORIDE 0.9% 1,000 ML IV ONE (22:41)
--- NOTE | 2025-02-27 22:41 | Emergency Department Note ---
History of Present Illness General Chief complaint: Vomiting Stated complaint: N/V, Dizziness Time Seen by Provider: 02/27/25 22:30 History of Present Illness This is a 74-year-old female presenting to the emergency department via EMS from home for evaluation of dizziness, nausea, and vomiting. The patient was eating dinner when she felt like the room started to spin. She is having difficulty sitting upright and is favoring leading to her right. The patient does not have any injury or trauma. She is not on blood thinners. No history of stroke or vertigo in the past. Patient does not endorse any chest pain, chest tightness, or shortness of breath. Home Medications Medication Instructions Recorded Confirmed Type cholecalciferol (vitamin D3) 50 2,000 unit PO QAM 11/16/18 02/27/25 History mcg (2,000 unit) capsule (Vitamin D3) omega 3 350 mg-dha 235 mg-epa 90 1 cap PO QAM 11/16/18 02/27/25 History mg-fish oil 597 mg capsule,delay rel ([place]-3) glucosamine-chondroitin 500 mg-400 1 tab PO BID 05/01/19 02/27/25 History mg tablet syzblhvl-xlh-fjvcfu 5 mg-zeaxanth 2 cap PO BID #30 caps 02/02/21 02/27/25 Rx 1 mg-bilberry 7.5 mg-herbal capsule (Macular Health Formula) trimethoprim 100 mg tablet 100 mg PO ONCE PRN postcoital #90 06/20/24 02/27/25 Rx tabs metoprolol succinate 100 mg 100 mg PO BID #180 tabs 07/19/24 02/27/25 Rx tablet,extended release 24 hr diltiazem HCl 300 mg 300 mg PO QAM #90 caps 01/16/25 02/27/25 Rx capsule,extended release 24 hr atorvastatin 20 mg tablet 20 mg PO QPM #90 tabs 02/14/25 02/27/25 Rx alendronate 70 mg tablet (Fosamax) 70 mg PO WK 02/27/25 02/27/25 History calcium carbonate (Calcium 600) 600 mg PO QAM 02/27/25 02/27/25 History Allergies Allergy/AdvReac Type Severity Reaction Status Date / Time Sulfa (Sulfonamide Allergy Intermediate Hives Verified 02/27/25 23:38 Antibiotics) nitrofurantoin AdvReac Severe Diffuse Verified 02/27/25 23:38 body aches amlodipine AdvReac Intermediate Jittery Verified 02/27/25 23:38 hydromorphone AdvReac Intermediate Vomiting Verified 02/27/25 23:38 Past Med/Surg History Problem List (Updated 02/28/25 @ 01:21 by Bharat Villaseñor PA-C) Nausea and vomiting (Acute) Elevated troponin (Acute) Dizziness (Acute) Elevated troponin Vertigo Calcium nephrolithiasis (Chronic) Abnormal CT scan, gastrointestinal tract On statin therapy Osteoporosis Flank pain entered into EMR and last edited 12/06/23 History of repair of hiatal hernia (06/16/23) Laparoscopic Hiatal Hernia Repair with Parital Fundoplication, posterior gastropexy, enterolysis(Not Applicable) - Dwight Palomino DO RUIZ (dyspnea on exertion) entered into EMR 04/05/23 Left upper quadrant abdominal pain entered into EMR 03/29/23 Low back pain entered into EMR 03/29/23 Lower abdominal pain entered into EMR 03/29/23 HOCM (hypertrophic obstructive cardiomyopathy) Mitral regurgitation Back pain Hypertrophic cardiomyopathy Colon cancer screening Hypertension Tricuspid valve regurgitation Elevated blood pressure reading in office with white coat syndrome, without diagnosis of hypertension entered into EMR 05/14/21 Cervical radiculopathy at C5 Arm pain, right entered into EMR 04/23/21 Hiatal hernia (Chronic) History of UTI Hyperlipidemia (Chronic) Per records, patient denies Impaired fasting glucose (Acute) resolved Medullary sponge kidney (Acute) Murmur (Acute) Osteopenia (Chronic) Thoracogenic scoliosis (Acute) Kidney stone entered into EMR 11/16/18 Medical History RUIZ (dyspnea on exertion) History of anesthesia reaction for 1 week following sx in 06/2023 at [facility], had a lot of pain in both shoulders and upper back-told it could have been from the anesthesia - No problems with 01/30/24 surgery. Tricuspid valve regurgitation f/u ana maria villarreal, [place] Osteoporosis Mitral valve regurgitation Medullary sponge kidney Cervical radiculopathy at C5 due to fall a few years ago, ROM is good Low back pain Scoliosis Hypertrophic cardiomyopathy [place] [facility] [place] Arthritis Hx of recurrent urinary tract infection Follows with Dr. Real History of kidney stones GERD (gastroesophageal reflux disease) no current meds History of TMJ disorder "Sometimes - not all the time" clicking or locking Macular degeneration gets Ilea injections every 6 weeks History of COVID-19 04/2021- sinus congestion > "resolved" 04/11/23 (home test)- mild symptoms, tx w/paxlovid > "resolved" Paroxysmal supraventricular tachycardia f/u [facility] Premature ventricular contractions f/u [facility] Surgical History History of esophagogastroduodenoscopy (EGD) possibly per pt. History of repair of hiatal hernia Laparoscopic Hiatal Hernia Repair with Parital Fundoplication, posterior gastropexy, enterolysis(Not Applicable) - Dwight Palomino DO History of colonoscopy [place] teeth removed History of cataract surgery Bilateral H/O tubal ligation History of lithotripsy Family History Mother , AGE 77 Diabetes Stroke Sister Breast cancer Cancer BREAST Other No family history of adverse response to anesthesia Denies family history of Ovarian cancer Prostate cancer Myocardial infarction Lung cancer Colorectal cancer Social History Smoking Status: Never smoker Second Hand Exposure: No; Do You Dip or Chew Tobacco: No; Hx Alcohol Use: Yes Alcohol type: wine Alcohol Intake Frequency: 2-4 x/Month Hx Substance Use: No Preferred Language: Swedish Communication Ability: Effective Visual Impairment: No Limitations Hearing Ability: Normal Manager Domestic Required: No Beliefs That Will Affect Care: None marital status: Current Living Situation: Spouse current occupational status: retired How many Children do You have: 2 Feels Safe at Home: Yes Childhood Exposure to Second-Hand Smoke: No Diet: regular caffeine: Yes during the past year weight has: remained stable Dental Care, Regularly: Yes Physical Activity Frequency: Daily Seatbelt Use: always Sunscreen Use: Yes Assistive Devices: Glasses Review of Systems A total of 10 systems reviewed and were otherwise negative Physical Exam Vital Signs Vital Signs - 24 hr 02/27/25 22:34 02/27/25 22:35 02/27/25 23:20 Temperature 36.4 C L Temperature Source Oral Pulse Rate 60 59 L Pulse Rate [Apical] 71 Respiratory Rate 21 18 Blood Pressure 146/79 H Blood Pressure [Right Arm] 161/80 H Blood Pressure Mean 101 Blood Pressure Mean [Right Arm] 107 Pulse Oximetry 95 93 Oxygen Delivery Method Room Air Room Air Oxygen Flow Rate Sepsis Recent Fever Within 48 Hours No Sepsis New/Unexplained Change in Mental Status No Sepsis Action Taken by Nursing No Action Required 02/27/25 23:25 02/27/25 23:40 02/27/25 23:45 Temperature Temperature Source Pulse Rate 72 60 71 Pulse Rate [Apical] Respiratory Rate 20 20 20 Blood Pressure 153/84 H 124/73 129/71 Blood Pressure [Right Arm] Blood Pressure Mean 107 94 89 Blood Pressure Mean [Right Arm] Pulse Oximetry 92 94 96 Oxygen Delivery Method Nasal Cannula Nasal Cannula Nasal Cannula Oxygen Flow Rate 6 6 6 Sepsis Recent Fever Within 48 Hours Sepsis New/Unexplained Change in Mental Status Sepsis Action Taken by Nursing 02/28/25 00:10 02/28/25 00:15 02/28/25 00:30 Temperature Temperature Source Pulse Rate 66 66 64 Pulse Rate [Apical] Respiratory Rate 18 18 18 Blood Pressure 119/69 125/68 135/78 Blood Pressure [Right Arm] Blood Pressure Mean 83 81 86 Blood Pressure Mean [Right Arm] Pulse Oximetry 97 97 97 Oxygen Delivery Method Nasal Cannula Nasal Cannula Nasal Cannula Oxygen Flow Rate 6 2 2 Sepsis Recent Fever Within 48 Hours Sepsis New/Unexplained Change in Mental Status Sepsis Action Taken by Nursing 02/28/25 01:00 Temperature Temperature Source Pulse Rate 65 Pulse Rate [Apical] Respiratory Rate 16 Blood Pressure 119/71 Blood Pressure [Right Arm] Blood Pressure Mean 85 Blood Pressure Mean [Right Arm] Pulse Oximetry 95 Oxygen Delivery Method Nasal Cannula Oxygen Flow Rate 2 Sepsis Recent Fever Within 48 Hours Sepsis New/Unexplained Change in Mental Status Sepsis Action Taken by Nursing VITALS: Vitals are noted on the nurse's note and reviewed by myself. Vital signs stable. GENERAL: Well-developed, well-nourished, white female, who is mildly ill- appearing on exam. She has difficulty opening her eyes as this seems to worsen the symptoms. HEAD: Normocephalic atraumatic. EARS: External ear normal. External auditory canals clear, tympanic membranes pearly scanlon without erythema or effusion bilaterally. EYES: Pupils equal round and reactive to light and accommodation. Conjunctivae without injection, sclerae without icterus. Extraocular movements intact. NOSE: Patent, turbinates without inflammation or discharge. NECK: Supple without nuchal rigidity. No lymphadenopathy. No thyromegaly. Cervical spine is nontender. HEART: Harsh systolic murmur noted LUNGS: Clear to auscultation bilaterally without wheezes, rales or rhonchi. No retractions or accessory muscle use. ABDOMEN: Positive normal bowel sounds x 4. Soft, nontender, without masses or organomegaly. No guarding or rebound tenderness. MUSCULOSKELETAL: No muscle atrophy, erythema, or edema noted. Full range of motion in all extremities. . NEURO: Patient was alert and oriented to person place and time. CN II through XII grossly intact. Course Administered Medications Discontinued Medications Diazepam (Diazepam 5 Mg/Ml 10ml Vial) 10 mg IV NOW STA Stop: 02/27/25 22:40 Last Admin: 02/27/25 23:21 Dose: 10 mg Documented By: FOX Sodium Chloride (Nss) 1,000 mls @ 999 mls/hr IV .Q1H1M ONE Stop: 02/27/25 23:37 Last Infusion: 02/27/25 23:42 Dose: Infused Documented By: Admin: 02/27/25 22:41 Dose: 999 mls/hr Documented By: PAZ Ioversol (Optiray 320 125ml) 118 ml IV ONCE ONE Stop: 02/27/25 23:03 Last Admin: 02/27/25 23:02 Dose: 118 ml Documented By: JENI Medical Decision Making Differential Diagnosis Differential diagnosis: Etiologies such as benign positional vertigo, labrynthitis, dehydration, hypovolemia, anemia, tumor, infection, hypoglycemia, electrolyte abnormalities, cardiac sources, toxicological sources, central neurologic process, as well as others were entertained. Laboratory Data 02/27/25 22:30 02/27/25 22:30 Lab Results 02/27/25 02/27/25 Range/Units 22:30 22:52 WBC 7.35 (4.8-10.8) K/ul RBC 4.57 (4.20-5.40) M/uL Hgb 14.2 (12.0-16.0) g/dl POC Hgb 12.9 (12.0-16.0) g/dl Hct 42.0 (37.0-47.0) % POC Hct 38 (37-47) % MCV 91.9 (80.0-100.0) fL MCH 31.1 (25.0-34.0) pg MCHC 33.8 (32.0-36.0) g/dL RDW Std Deviation 43.2 (36.4-46.3) fL RDW Coeff of Binh 12.9 (11.5-14.5) % Plt Count 166 (130-400) K/uL MPV 12.1 (9.4-12.4) fL Immature Gran % (Auto) 0.3 % Neut % (Auto) 50.4 % Lymph % (Auto) 32.4 % [place] % (Auto) 13.3 % Eos % (Auto) 2.9 % Baso % (Auto) 0.7 % Neut # (Auto) 3.71 (1.40-6.50) K/uL Lymph # (Auto) 2.38 (1.20-3.40) K/uL [place] # (Auto) 0.98 H (0.11-0.59) K/uL Eos # (Auto) 0.21 (0.00-0.50) K/uL Baso # (Auto) 0.05 (0.00-0.20) K/uL Immature Gran # (Auto) 0.02 (0.01-0.20) K/uL PT 10.3 (9.0-12.0) Seconds INR 0.9 (0.9-1.1) APTT 25 (21-31) Seconds PTT Ratio 0.9 POC Sodium 139 (135-144) mmol/L Sodium 139 (136-145) mmol/L POC Potassium 3.7 (3.3-5.0) mmol/L Potassium 3.9 (3.5-5.1) mmol/L POC Chloride 105 (101-112) mmol/L Chloride 105 (98-107) mmol/L Carbon Dioxide 27 (21-32) mmol/L POC Total CO2 25 (24-31) mmol/L Anion Gap 7 (3-11) POC Anion Gap 14.0 L (16-25) mmol/L POC BUN 21 H (7-18) mg/dl BUN 23 (6-23) mg/dl Creatinine 0.90 (0.6-1.2) mg/dl POC Creatinine 0.9 (0.6-1.3) mg/dl Est Cr Clr Drug Dosing 46.4 ml/min eGFR 67.92 BUN/Creatinine Ratio 25.6 H (10-20) Glucose 116 H (70-99(Fasting)) mg/dl POC Glucose (other) 108 H (70-99) mg/dl Calcium 9.0 (8.6-10.3) mg/dl POC Ioniz Calcium Demi 1.01 L (1.12-1.32) mmol/l Magnesium 2.2 (1.7-2.4) mg/dl Total Bilirubin 0.4 (0.2-1.0) mg/dl AST 20 (13-39) U/L ALT 25 (7-52) U/L Alkaline Phosphatase 65 (34-104) U/L Troponin I High Sens 18.3 H (0-14) pg/ml Total Protein 6.4 (6.0-8.3) gm/dl Albumin 3.8 (3.4-5.0) gm/dl Globulin 2.6 (2.5-4.0) gm/dl Albumin/Globulin Ratio 1.5 (0.9-2) Imaging Data Radiologist's Impression: Head CT 02/27/25 22:37 Exam(s): CT HEAD Without Contrast EXAM: CT Head Without Intravenous Contrast CLINICAL HISTORY: Reason for exam: vertiginous symptoms, acute neuro changes. TECHNIQUE: Axial computed tomography images of the head/brain without intravenous contrast. CTDI is 12.01 mGy and DLP is 455 mGy-cm. Automated exposure control was utilized for the study. A dose lowering technique was utilized adhering to the principles of ALARA. Mild to moderate motion artifact. COMPARISON: None. FINDINGS: Brain: No mass effect or acute infarct. No acute hemorrhage. Mild atrophy and chronic white matter disease. Ventricles: No hydrocephalus or midline shift. Bones/joints: No skull fracture. Soft tissues: No scalp hematoma. Visualized Sinuses: Clear. Mastoid air cells: No mastoid effusion. IMPRESSION: 1. Mild age-related findings. 2. No acute infarct, bleed, or acute intracranial abnormality. 3. Mild to moderate motion artifact. Electronically signed by: Leandra House M.D. 02/27/25 23:51 PM Head CTA 02/27/25 22:37 Exam(s): CTA HEAD With Contrast IV Amt: 118 cc opti 320 EXAM: CT Angiography Head With Intravenous Contrast CLINICAL HISTORY: Reason for exam: vertiginous symptoms, acute neuro changes. TECHNIQUE: Axial computed tomographic angiography images of the head with intravenous contrast. CTDI is 12.01 mGy and DLP is 445 mGy-cm. Automated exposure control was utilized for the study. A dose lowering technique was utilized adhering to the principles of ALARA. MIP reconstructed images were created and reviewed. Moderate motion artifact. CONTRAST: Patient received 118 cc opti 320 of IV contrast COMPARISON: Head CT same day. FINDINGS: Right internal carotid artery: Patent. Right anterior cerebral artery: Patent. Right middle cerebral artery: Patent. Right posterior cerebral artery: Patent. Right vertebral artery: Patent. Left internal carotid artery: Patent. Left anterior cerebral artery: Patent. Left middle cerebral artery: Patent. Left posterior cerebral artery: Patent. Left vertebral artery: Patent. Basilar artery: Patent. Other: IMPRESSION: 1. No aneurysm or large vessel occlusion. 2. Moderate motion artifact. Electronically signed by: Leandra House M.D. 02/28/25 00:16 AM Neck CTA 02/27/25 22:37 Exam(s): CTA NECK With Contrast IV Amt: 118 cc opti 320 EXAM: CT Angiography Neck With Intravenous Contrast CLINICAL HISTORY: Reason for exam: vertiginous symptoms, acute neuro changes. TECHNIQUE: Routine carotid CT angiography protocol was performed with intravenous contrast. NASCET criteria using the distal ICAs for comparison were used for evaluation of stenoses. CTDI is 12.01 mGy and DLP is 445 mGy-cm. Automated exposure control was utilized for the study. A dose lowering technique was utilized adhering to the principles of ALARA. MIP reconstructed images were created and reviewed. Moderate artifact from contrast streak, patient motion and dental metal. CONTRAST: Patient received 118 cc opti 320 of IV contrast COMPARISON: None. FINDINGS: Right common carotid artery: Patent. Right internal carotid artery: Patent. Right vertebral artery: Patent. Codominant. Left common carotid artery: Patent. Left internal carotid artery: Patent. Left vertebral artery: Patent. Other: Mild atherosclerosis bilateral carotid bifurcation, without significant stenosis. Severe ectatic thoracic aorta, partially imaged. Ectatic great vessels as well. IMPRESSION: 1. Ectatic vessels. 2. No dissection, occlusion, or significant stenosis. CAROTID STENOSIS REFERENCE USING NASCET CRITERIA: % ICA stenosis = (1 - narrowest ICA diameter/diameter of distal cervical ICA) x 100. Mild - <50% stenosis. Moderate - 50-69% stenosis. Severe - 70-94% stenosis. Near occlusion - 95-99% stenosis. Occluded - 100% stenosis. Electronically signed by: Leandra House M.D. 02/28/25 00:13 AM ECG Data Attestation: I personally reviewed and interpreted this ECG as follows: Indication: + other Additional Comments: Normal sinus rhythm at [address] abnormality No significant change when compared to EKG 14 February 2025 MDM Narrative Physical exam and history were performed. Nursing notes, EMR, and Medication List were personally reviewed. No social concerns were identified as barriers to patients care. History was provided by the Patient, EMS, and patient's who is at bedside. Patient appears to have dizziness with nausea. She did get 4 mg IV Zofran prehospital. IV access was established and labs were obtained. Patient's symptoms do seem vertiginous, and she was given IV Valium for comfort. She was sent to CT scan for imaging. She was hydrated normal saline. Patient's blood work is as above and was reviewed. She does not have a significant elevated white blood cell count, gross anemia, bandemia, or significant electrolyte imbalance. Transaminases are not diagnostic. Glucose is 116. Troponin is slightly elevated at 18.3, with her last troponin being performed about 3 [address] ago [address] scans were independently reviewed by myself and radiology, do not show any acute stroke findings. Escalation of care was considered, and felt to be necessary. On reevaluation the patient remains moderately dizzy, although her nausea has improved. She does not seem well for discharge home at this time. Case was discussed with both my attending and the on-call hospitalist team, who agreed to evaluate the patient here in the ER. Please see their dictation for further patient course, plan, disposition. The chart was completed utilizing [employer] Speech Voice Recognition Software. Grammatical errors, random word insertions, pronoun errors, and incomplete sentences are an occasional consequence of this system due to software limitations, ambient noise, and hardware issues. Any formal questions or concerns about the content, text, or information contained within the body of this dictation should be directly addressed to the provider for clarification. Impression & Plan Dizziness, Elevated troponin, Nausea and vomiting Discharge Plan Visit Data Chief Complaint: Vomiting Stated Complaint: N/V, Dizziness ED Provider: Damir Woodruff ED Midlevel Provider: Bharat Villaseñor Discharge Problem: Dizziness, Elevated troponin, Nausea and vomiting Patient Disposition: Being Evaluated by Hospitalist Condition: Fair Forms Stand Alone Forms: My [facility] Prescriptions Prescriptions: No Action trimethoprim 100 mg tablet 100 mg PO ONCE PRN (Reason: postcoital ) Qty: 90 0RF Rx Instructions: after intercourse diltiazem HCl 300 mg capsule,extended release 24hr 300 mg PO QAM Qty: 90 3RF Macular Health Formula 5-1-7.5 mg capsule 2 cap PO BID Qty: 30 0RF metoprolol succinate 100 mg tablet extended release 24 hr 100 mg PO BID Qty: 180 3RF atorvastatin 20 mg tablet 20 mg PO QPM Qty: 90 3RF cholecalciferol (vitamin D3) [Vitamin D3] 2,000 unit Capsule 2,000 unit PO QAM [place]-3 350 mg-235 mg- 90 mg-597 mg Capsule,Delayed Release(Dr/Ec) 1 cap PO QAM glucosamine-chondroitin 500-400 mg tablet 1 tab PO BID calcium carbonate [Calcium 600] 600 mg calcium (1,500 mg) Tablet 600 mg PO QAM alendronate [Fosamax] 70 mg tablet 70 mg PO WK Rx Instructions: [facility] Referrals Referrals: Rani Vyas DO [Primary Care Provider] -
[2025-02-27 22:50] LABS: Hematocrit (blood only) 42.0 % (37.0-47.0); Hemoglobin 14.2 g/dl (12.0-16.0); Immature Granulocytes # (auto) 0.02 K/uL (0.01-0.20); Immature Granulocytes % (auto) 0.3 %; Mean Corpuscular Hemoglobin 31.1 pg (25.0-34.0); Mean Corpuscular Volume 91.9 fL (80.0-100.0); Platelet Count 166 K/uL (130-400); RDW Standard Deviation 43.2 fL (36.4-46.3); Red Blood Count 4.57 M/uL (4.20-5.40); White Blood Count 7.35 K/ul (4.8-10.8)
[2025-02-27] MEDS: OPTIRAY 320 125ml IV ONE (23:02)
[2025-02-27 23:10] LABS: Alanine Aminotransferase 25.0 U/L (7-52); Albumin Globulin Ratio 1.5 (0.9-2); Alkaline Phosphatase 65.0 U/L (34-104); Anion Gap 7.0 (3-11); Bilirubin,Total 0.4 mg/dl (0.2-1.0); Blood Urea Nitrogen 23.0 mg/dl (6-23); Calcium 9.0 mg/dl (8.6-10.3); Carbon Dioxide 27.0 mmol/L (21-32); Chloride 105.0 mmol/L (98-107); Creatinine Clr Calc Pharmacy 46.4 ml/min; Globulin 2.6 gm/dl (2.5-4.0); Glucose 116.0 mg/dl (70-99(Fasting)); Magnesium 2.2 mg/dl (1.7-2.4); Potassium 3.9 mmol/L (3.5-5.1); Sodium 139.0 mmol/L (136-145); Total Protein 6.4 gm/dl (6.0-8.3)
[2025-02-27] MEDS: diazePAM 5 MG/ML 10ML VIAL IV STA (23:21)
[2025-02-27 23:38] LABS: INR 0.9 (0.9-1.1); Partial Thromboplastin Time 25 Seconds (21-31); Prothrombin Time 10.3 Seconds (9.0-12.0)
--- NOTE | 2025-02-27 23:51 | CT Scan Report ---
Exam(s): CT HEAD Without Contrast EXAM: CT Head Without Intravenous Contrast CLINICAL HISTORY: Reason for exam: vertiginous symptoms, acute neuro changes. TECHNIQUE: Axial computed tomography images of the head/brain without intravenous contrast. CTDI is 12.01 mGy and DLP is 455 mGy-cm. Automated exposure control was utilized for the study. A dose lowering technique was utilized adhering to the principles of ALARA. Mild to moderate motion artifact. COMPARISON: None. FINDINGS: Brain: No mass effect or acute infarct. No acute hemorrhage. Mild atrophy and chronic white matter disease. Ventricles: No hydrocephalus or midline shift. Bones/joints: No skull fracture. Soft tissues: No scalp hematoma. Visualized Sinuses: Clear. Mastoid air cells: No mastoid effusion. IMPRESSION: 1. Mild age-related findings. 2. No acute infarct, bleed, or acute intracranial abnormality. 3. Mild to moderate motion artifact. Electronically signed by: Leandra House M.D. 02/27/25 23:51 PM
--- NOTE | 2025-02-28 00:14 | CT Scan Report ---
Exam(s): CTA NECK With Contrast IV Amt: 118 cc opti 320 EXAM: CT Angiography Neck With Intravenous Contrast CLINICAL HISTORY: Reason for exam: vertiginous symptoms, acute neuro changes. TECHNIQUE: Routine carotid CT angiography protocol was performed with intravenous contrast. NASCET criteria using the distal ICAs for comparison were used for evaluation of stenoses. CTDI is 12.01 mGy and DLP is 445 mGy-cm. Automated exposure control was utilized for the study. A dose lowering technique was utilized adhering to the principles of ALARA. MIP reconstructed images were created and reviewed. Moderate artifact from contrast streak, patient motion and dental metal. CONTRAST: Patient received 118 cc opti 320 of IV contrast COMPARISON: None. FINDINGS: Right common carotid artery: Patent. Right internal carotid artery: Patent. Right vertebral artery: Patent. Codominant. Left common carotid artery: Patent. Left internal carotid artery: Patent. Left vertebral artery: Patent. Other: Mild atherosclerosis bilateral carotid bifurcation, without significant stenosis. Severe ectatic thoracic aorta, partially imaged. Ectatic great vessels as well. IMPRESSION: 1. Ectatic vessels. 2. No dissection, occlusion, or significant stenosis. CAROTID STENOSIS REFERENCE USING NASCET CRITERIA: % ICA stenosis = (1 - narrowest ICA diameter/diameter of distal cervical ICA) x 100. Mild - <50% stenosis. Moderate - 50-69% stenosis. Severe - 70-94% stenosis. Near occlusion - 95-99% stenosis. Occluded - 100% stenosis. Electronically signed by: Leandra House M.D. 02/28/25 00:13 AM
--- NOTE | 2025-02-28 00:17 | CT Scan Report ---
Exam(s): CTA HEAD With Contrast IV Amt: 118 cc opti 320 EXAM: CT Angiography Head With Intravenous Contrast CLINICAL HISTORY: Reason for exam: vertiginous symptoms, acute neuro changes. TECHNIQUE: Axial computed tomographic angiography images of the head with intravenous contrast. CTDI is 12.01 mGy and DLP is 445 mGy-cm. Automated exposure control was utilized for the study. A dose lowering technique was utilized adhering to the principles of ALARA. MIP reconstructed images were created and reviewed. Moderate motion artifact. CONTRAST: Patient received 118 cc opti 320 of IV contrast COMPARISON: Head CT same day. FINDINGS: Right internal carotid artery: Patent. Right anterior cerebral artery: Patent. Right middle cerebral artery: Patent. Right posterior cerebral artery: Patent. Right vertebral artery: Patent. Left internal carotid artery: Patent. Left anterior cerebral artery: Patent. Left middle cerebral artery: Patent. Left posterior cerebral artery: Patent. Left vertebral artery: Patent. Basilar artery: Patent. Other: IMPRESSION: 1. No aneurysm or large vessel occlusion. 2. Moderate motion artifact. Electronically signed by: Leandra House M.D. 02/28/25 00:16 AM
--- NOTE | 2025-02-28 01:07 | History & Physical Report ---
Date of Service February 28, 2025 Assessment & Plan (1) Vertigo: (2) HOCM (hypertrophic obstructive cardiomyopathy): (3) Hypertrophic cardiomyopathy: (4) Elevated troponin: Plan This is a 74 year old female with a PMH of hypertrophic cardiomyopathy, HTN, HLD, cervical radiculopathy - coming in with dizziness and L sided gait preference Vertigo - presents as BPPV - head CT and CTA head/neck were done and negative for acute process - due to sudden onset, will check Brain MRI for completeness - IV fluids, PRN zofran, PRN meclizine - PT/OT ordered for vestibular exam Elevated Troponin - mild bump in troponin, does not appear to be ACS; patient with murmur, consistent with HCOM - recent echo, shows the HCOM with regurg, but normal LVEF - trend trops History of Present Illness Chief Complaint: Dizziness Primary Care Provider: Rani Vyas, This is a 74 year old female with a PMH of hypertrophic cardiomyopathy, HTN, HLD, cervical radiculopathy - coming in with dizziness and L sided gait preference. They brought her here via ambulance. in the ER, symptoms were consis tent with vertigo initially, but gait was still an issue. head CT and CTA head/neck done and no acute issues noted. Labs drawn and a mild bump in troponin identified. Due to ongoing symptoms, decision made to admit. Allergies Allergy/AdvReac Type Severity Reaction Status Date / Time Sulfa (Sulfonamide Allergy Intermediate Hives Verified 02/27/25 23:38 Antibiotics) nitrofurantoin AdvReac Severe Diffuse Verified 02/27/25 23:38 body aches amlodipine AdvReac Intermediate Jittery Verified 02/27/25 23:38 hydromorphone AdvReac Intermediate Vomiting Verified 02/27/25 23:38 Home Medications Medication Instructions Recorded Confirmed Type cholecalciferol (vitamin D3) 50 2,000 unit PO QAM 11/16/18 02/27/25 History mcg (2,000 unit) capsule (Vitamin D3) omega 3 350 mg-dha 235 mg-epa 90 1 cap PO QAM 11/16/18 02/27/25 History mg-fish oil 597 mg capsule,delay rel ([place]-3) glucosamine-chondroitin 500 mg-400 1 tab PO BID 05/01/19 02/27/25 History mg tablet bljtnnca-umw-nxhvjn 5 mg-zeaxanth 2 cap PO BID #30 caps 02/02/21 02/27/25 Rx 1 mg-bilberry 7.5 mg-herbal capsule ([employer] Formula) trimethoprim 100 mg tablet 100 mg PO ONCE PRN postcoital #90 06/20/24 02/27/25 Rx tabs metoprolol succinate 100 mg 100 mg PO BID #180 tabs 07/19/24 02/27/25 Rx tablet,extended release 24 hr diltiazem HCl 300 mg 300 mg PO QAM #90 caps 01/16/25 02/27/25 Rx capsule,extended release 24 hr atorvastatin 20 mg tablet 20 mg PO QPM #90 tabs 02/14/25 02/27/25 Rx alendronate 70 mg tablet (Fosamax) 70 mg PO WK 02/27/25 02/27/25 History calcium carbonate (Calcium 600) 600 mg PO QAM 02/27/25 02/27/25 History Past Med/Surg History Problem List (Updated 02/28/25 @ 01:08 by Kimberly Munoz DO) Elevated troponin Vertigo Calcium nephrolithiasis (Chronic) Abnormal CT scan, gastrointestinal tract On statin therapy Osteoporosis Flank pain entered into EMR and last edited 12/06/23 History of repair of hiatal hernia (06/16/23) Laparoscopic Hiatal Hernia Repair with Parital Fundoplication, posterior gastropexy, enterolysis(Not Applicable) - Dwight Palomino DO RUIZ (dyspnea on exertion) entered into EMR 04/05/23 Left upper quadrant abdominal pain entered into EMR 03/29/23 Low back pain entered into EMR 03/29/23 Lower abdominal pain entered into EMR 03/29/23 HOCM (hypertrophic obstructive cardiomyopathy) Mitral regurgitation Back pain Hypertrophic cardiomyopathy Colon cancer screening Hypertension Tricuspid valve regurgitation Elevated blood pressure reading in office with white coat syndrome, without diagnosis of hypertension entered into EMR 05/14/21 Cervical radiculopathy at C5 Arm pain, right entered into EMR 04/23/21 Hiatal hernia (Chronic) History of UTI Hyperlipidemia (Chronic) Per records, patient denies Impaired fasting glucose (Acute) resolved Medullary sponge kidney (Acute) Murmur (Acute) Osteopenia (Chronic) Thoracogenic scoliosis (Acute) Kidney stone entered into EMR 11/16/18 Medical History RUIZ (dyspnea on exertion) History of anesthesia reaction for 1 week following sx in 06/2023 at [facility], had a lot of pain in both shoulders and upper back-told it could have been from the anesthesia - No problems with 01/30/24 surgery. Tricuspid valve regurgitation f/u jonny and wali villarreal, natalie Osteoporosis Mitral valve regurgitation Medullary sponge kidney Cervical radiculopathy at C5 due to fall a few years ago, ROM is good Low back pain Scoliosis Hypertrophic cardiomyopathy Follows with [facility] cardio Arthritis Hx of recurrent urinary tract infection Follows with Dr. Real History of kidney stones GERD (gastroesophageal reflux disease) no current meds History of TMJ disorder "Sometimes - not all the time" clicking or locking Macular degeneration gets Ilea injections every 6 weeks History of COVID-19 04/2021- sinus congestion > "resolved" 04/11/23 (home test)- mild symptoms, tx w/paxlovid > "resolved" Paroxysmal supraventricular tachycardia f/u [facility] Premature ventricular contractions f/u [facility] Surgical History History of esophagogastroduodenoscopy (EGD) possibly per pt. History of repair of hiatal hernia Laparoscopic Hiatal Hernia Repair with Parital Fundoplication, posterior gastropexy, enterolysis(Not Applicable) - Dwight Palomino DO History of colonoscopy [place] teeth removed History of cataract surgery Bilateral H/O tubal ligation History of lithotripsy Family History Mother , AGE 77 Diabetes Stroke Sister Breast cancer Cancer BREAST Other No family history of adverse response to anesthesia Denies family history of Ovarian cancer Prostate cancer Myocardial infarction Lung cancer Colorectal cancer Social History Smoking Status: Never smoker Second Hand Exposure: No; Do You Dip or Chew Tobacco: No; Hx Alcohol Use: Yes Alcohol type: wine Alcohol Intake Frequency: 2-4 x/Month Hx Substance Use: No Preferred Language: Tajik Communication Ability: Effective Visual Impairment: No Limitations Hearing Ability: Normal Inspecting And Testing Lead Hand Required: No Beliefs That Will Affect Care: None marital status: Current Living Situation: Spouse current occupational status: retired How many Children do You have: 2 Feels Safe at Home: Yes Childhood Exposure to Second-Hand Smoke: No Diet: regular caffeine: Yes during the past year weight has: remained stable Dental Care, Regularly: Yes Physical Activity Frequency: Daily Seatbelt Use: always Sunscreen Use: Yes Assistive Devices: Glasses Review of Systems Review of Systems: Constitutional: No Weight Change, No Fever, No Chills, No Night Sweats, No Fatigue, No Malaise ENT/Mouth: No Hearing Changes, No Ear Pain, No Nasal Congestion, No Sinus Pain, No Hoarseness, No sore throat, No Rhinorrhea, No Swallowing Difficulty Eyes: No Eye Pain, No Swelling, No Redness, No Foreign Body, No Discharge, No Vision Changes Cardiovascular: No Chest Pain, No SOB, No PND, No Dyspnea on Exertion, No Orthopnea, No Claudication, No Edema, No Palpitations Respiratory: No Cough, No Sputum, No Wheezing, No Smoke Exposure, No Dyspnea Gastrointestinal: No Nausea, No Vomiting, No Diarrhea, No Constipation, No Pain, No Heartburn, No Anorexia, No Dysphagia, No Hematochezia, No Melena, No Flatulence, No Jaundice Genitourinary: No Dysmenorrhea, No DUB, No Dyspareunia, No Dysuria, No Urinary Frequency, No Hematuria, No Urinary Incontinence, No Urgency, No Flank Pain, No Urinary Flow Changes, No Hesitancy Musculoskeletal: No Arthralgias, No Myalgias, No Joint Swelling, No Joint Stiffness, No Back Pain, No Neck Pain, No Injury History Skin: No Skin Lesions, No Pruritis, No Hair Changes, No Breast/Skin Changes, No Nipple Discharge Neuro: No Weakness, No Numbness, No Paresthesias, No Loss of Consciousness, No Syncope, +dizziness with coordination issues No Headache, No Coordination Changes, No Recent Falls Psych: No Anxiety/Panic, No Depression, No Insomnia, No Personality Changes, No Delusions, No Rumination, No SI/HI/AH/VH, No Social Issues, No Memory Changes, No Violence/Abuse Hx., No Eating Concerns Heme/Lymph: No Bruising, No Bleeding, No Transfusions History, No Lymphadenopathy Endocrine: No Polyuria, No Polydipsia, No Temperature Intolerance Physical Exam Physical Exam: VITALS: Reviewed. WEIGHT/BMI reviewed. GEN: Healthy appearing, well-developed, NAD. PSYCH: Good Judgment. AOx3. Normal memory, mood, and affect. HEENT -Head: NC/AT; -Eyes: PERRL, EOMI. No discharge or redn ess; -Ears: External ears are normal. Normal TMs. -Nose: Normal nares. -Mouth and throat: MMM. Normal gums, muc sal, palate,. Good dentition. NECK: Supple, with no masses. CV: RRR, +4/6 systolic murmur LUNGS: CTAB, no w/r/c. ABD: Soft, NT/ND, NBS, no masses or organomegaly. : N/A SKIN: Warm, well perfused. No skin rashes or abnormal lesions. MSK: No deformities, Normal gait. EXT: No clubbing, cyanosis, or edema. NEURO: +gait abnormality. Normal muscle strength and tone. No focal deficits. Results & Data Results & Data Vital Signs (Past 12 Hours) Vital Signs Temp Pulse Pulse Resp BP BP Pulse Ox 02/28/25 00:10 66 18 119/69 97 02/27/25 23:45 71 20 129/71 96 02/27/25 23:40 60 20 124/73 94 02/27/25 23:25 72 20 153/84 H 92 02/27/25 23:20 71 18 161/80 H 93 02/27/25 22:35 59 L 02/27/25 22:34 36.4 C L 60 21 146/79 H 95 O2 Del Method O2 Flow Rate 02/28/25 00:10 Nasal Cannula 6 02/27/25 23:45 Nasal Cannula 6 02/27/25 23:40 Nasal Cannula 6 02/27/25 23:25 Nasal Cannula 6 02/27/25 23:20 Room Air 02/27/25 22:35 02/27/25 22:34 Room Air Laboratory Results 02/27/25 02/27/25 22:52 22:30 WBC 7.35 RBC 4.57 Hgb 14.2 POC Hgb 12.9 Hct 42.0 POC Hct 38 MCV 91.9 MCH 31.1 MCHC 33.8 RDW Std Deviation 43.2 RDW Coeff of Binh 12.9 Plt Count 166 MPV 12.1 Immature Gran % (Auto) 0.3 Neut % (Auto) 50.4 Lymph % (Auto) 32.4 [place] % (Auto) 13.3 Eos % (Auto) 2.9 Baso % (Auto) 0.7 Neut # (Auto) 3.71 Lymph # (Auto) 2.38 [place] # (Auto) 0.98 H Eos # (Auto) 0.21 Baso # (Auto) 0.05 Immature Gran # (Auto) 0.02 PT 10.3 INR 0.9 APTT 25 PTT Ratio 0.9 POC Sodium 139 Sodium 139 POC Potassium 3.7 Potassium 3.9 POC Chloride 105 Chloride 105 Carbon Dioxide 27 POC Total CO2 25 Anion Gap 7 POC Anion Gap 14.0 L POC BUN 21 H BUN 23 Creatinine 0.90 POC Creatinine 0.9 Est Cr Clr Drug Dosing 46.4 eGFR 67.92 BUN/Creatinine Ratio 25.6 H Glucose 116 H POC Glucose (other) 108 H Calcium 9.0 POC Ioniz Calcium Demi 1.01 L Magnesium 2.2 Total Bilirubin 0.4 AST 20 ALT 25 Alkaline Phosphatase 65 Troponin I High Sens 18.3 H Total Protein 6.4 Albumin 3.8 Globulin 2.6 Albumin/Globulin Ratio 1.[address] 02/27/25 22:37 Exam(s): CT HEAD Without Contrast EXAM: CT Head Without Intravenous Contrast CLINICAL HISTORY: Reason for exam: vertiginous symptoms, acute neuro changes. TECHNIQUE: Axial computed tomography images of the head/brain without intravenous contrast. CTDI is 12.01 mGy and DLP is 455 mGy-cm. Automated exposure control was utilized for the study. A dose lowering technique was utilized adhering to the principles of ALARA. Mild to moderate motion artifact. COMPARISON: None. FINDINGS: Brain: No mass effect or acute infarct. No acute hemorrhage. Mild atrophy and chronic white matter disease. Ventricles: No hydrocephalus or midline shift. Bones/joints: No skull fracture. Soft tissues: No scalp hematoma. Visualized Sinuses: Clear. Mastoid air cells: No mastoid effusion. IMPRESSION: 1. Mild age-related findings. 2. No acute infarct, bleed, or acute intracranial abnormality. 3. Mild to moderate motion artifact. Electronically signed by: Leandra House M.D. 02/27/25 23:51 PM Head CTA 02/27/25 22:37 Exam(s): CTA HEAD With Contrast IV Amt: 118 cc opti 320 EXAM: CT Angiography Head With Intravenous Contrast CLINICAL HISTORY: Reason for exam: vertiginous symptoms, acute neuro changes. TECHNIQUE: Axial computed tomographic angiography images of the head with intravenous contrast. CTDI is 12.01 mGy and DLP is 445 mGy-cm. Automated exposure control was utilized for the study. A dose lowering technique was utilized adhering to the principles of ALARA. MIP reconstructed images were created and reviewed. Moderate motion artifact. CONTRAST: Patient received 118 cc opti 320 of IV contrast COMPARISON: Head CT same day. FINDINGS: Right internal carotid artery: Patent. Right anterior cerebral artery: Patent. Right middle cerebral artery: Patent. Right posterior cerebral artery: Patent. Right vertebral artery: Patent. Left internal carotid artery: Patent. Left anterior cerebral artery: Patent. Left middle cerebral artery: Patent. Left posterior cerebral artery: Patent. Left vertebral artery: Patent. Basilar artery: Patent. Other: IMPRESSION: 1. No aneurysm or large vessel occlusion. 2. Moderate motion artifact. Electronically signed by: Leandra House M.D. 02/28/25 00:16 AM Neck CTA 02/27/25 22:37 Exam(s): CTA NECK With Contrast IV Amt: 118 cc opti 320 EXAM: CT Angiography Neck With Intravenous Contrast CLINICAL HISTORY: Reason for exam: vertiginous symptoms, acute neuro changes. TECHNIQUE: Routine carotid CT angiography protocol was performed with intravenous contrast. NASCET criteria using the distal ICAs for comparison were used for evaluation of stenoses. CTDI is 12.01 mGy and DLP is 445 mGy-cm. Automated exposure control was utilized for the study. A dose lowering technique was utilized adhering to the principles of ALARA. MIP reconstructed images were created and reviewed. Moderate artifact from contrast streak, patient motion and dental metal. CONTRAST: Patient received 118 cc opti 320 of IV contrast COMPARISON: None. FINDINGS: Right common carotid artery: Patent. Right internal carotid artery: Patent. Right vertebral artery: Patent. Codominant. Left common carotid artery: Patent. Left internal carotid artery: Patent. Left vertebral artery: Patent. Other: Mild atherosclerosis bilateral carotid bifurcation, without significant stenosis. Severe ectatic thoracic aorta, partially imaged. Ectatic great vessels as well. IMPRESSION: 1. Ectatic vessels. 2. No dissection, occlusion, or significant stenosis. CAROTID STENOSIS REFERENCE USING NASCET CRITERIA: % ICA stenosis = (1 - narrowest ICA diameter/diameter of distal cervical ICA) x 100. Mild - <50% stenosis. Moderate - 50-69% stenosis. Severe - 70-94% stenosis. Near occlusion - 95-99% stenosis. Occluded - 100% stenosis. Electronically signed by: Leandra House M.D. 02/28/25 00:13 AM Code Status & VTE Plan VTE Prophylaxis Plan VTE Prophylaxis will be ordered: Yes PG Care Time/CCT Total # of Minutes Spent Total Time Spent with Patient: Total time spent is greater than 50% in coordination of care (as documented) at patient's floor/unit and/or counseling patient: Coding Level of Care Code 15437 INT INP/OBS CARE 3/75MIN Diagnoses Vertigo R42 HOCM (hypertrophic obstructive cardiomyopathy) I42.1 Hypertrophic cardiomyopathy I42.2 Elevated troponin R79.89
--- NOTE | 2025-02-28 02:52 | Magnetic Resonance Report ---
EXAM: MR brain wo con CLINICAL HISTORY: Dizziness; Gait Abnormality TECHNIQUE: Multisequential and multiplanar images of the brain were submitted for review without contrast. COMPARISON: None FINDINGS: Small focal area of blooming is noted involving left frontal lobe white matter- calcification likely. Generalized parenchymal atrophy is appreciated. Scattered foci of increased T2/FLAIR signal abnormality are identified within the bilateral periventricular and subcortical white matter, and are most commonly associated with chronic small vessel ischemic disease. No focal parenchymal lesions are seen. No intracranial hemorrhage, mass effect, midline shift, extra-axial collection, or hydrocephalus is identified. Ventricles, sulci, and basal cisterns are symmetric and normal in size and configuration. Diffusion-weighted sequences show no evidence of acute ischemic infarction. Midline structures including the pituitary gland, corpus callosum, pineal region, and brainstem are unremarkable. The craniovertebral junction is within normal limits. No calvarial abnormalities are identified. The paranasal sinuses and mastoid air cells are clear. Orbital structures are unremarkable. Appropriate flow voids are present in the visualized intracranial vessels. IMPRESSION: 1. No acute ischemia, space occupying mass, or other acute intracranial pathology is demonstrated. 2. Chronic small vessel ischemic disease. 3. Diffuse cerebral atrophy. Electronically signed by Kyle Hector 02-28-2025 02:51 AM
[2025-02-28] MEDS ORDERED: ACETAMINOPHEN 325 MG TAB PO PRN (03:40)
[2025-02-28] MEDS ORDERED: ONDANSETRON INJ 2 MG/ML 2 ML VIAL IV PRN (03:40)
[2025-02-28] MEDS ORDERED: MAGNESIUM HYDROXIDE SUSP 30 ML UDC PO PRN (03:40)
[2025-02-28] MEDS ORDERED: MELATONIN 3 MG TAB PO PRN (03:40)
[2025-02-28] MEDS: SODIUM CHLORIDE 0.9% 500 ML IV SCH (04:05)
[2025-02-28 04:19] VITALS: O2SAT 93
[2025-02-28] MEDS: METOPROLOL SUCC 50MG EXT REL TAB PO SCH (04:43)
[2025-02-28] MEDS: MECLIZINE HCL 25 MG TAB PO PRN (08:40)
[2025-02-28] MEDS: ENOXAPARIN INJ 40 MG/0.4 ML SYR SQ SCH (08:41)
[2025-02-28] MEDS: CHOLECALCIFEROL 25 MCG (1000 UNITS) TAB PO SCH (08:41)
--- NOTE | 2025-02-28 16:18 | XCELERA ---
[id number]
[2025-02-28] MEDS: SODIUM CHLORIDE 0.65% NA SOLN 45 ML (OCEAN) ONE (16:38)
[2025-02-28 19:33] VITALS: BP 130/75; PULSE 63; RESP 16; TEMP 98.2
[2025-02-28] MEDS: ATORVASTATIN 20 MG TAB PO SCH (19:37)
--- NOTE | 2025-03-01 18:15 | Discharge Summary ---
Discharge Summary Date of Service February 28, 2025 Principal Dx & Hospital Course #1 = Principal Diagnosis (1) Vertigo: s/p brain MRI, CT head s/p echo f/u with cardiology for event monitor aspirin and statin. outpatient PT (2) HOCM (hypertrophic obstructive cardiomyopathy): f/u with cardiology s/p repeat echo (3) Hypertrophic cardiomyopathy: (4) Elevated troponin: Plan This is a 74 year old female with a PMH of hypertrophic cardiomyopathy, HTN, HLD, cervical radiculopathy - coming in with dizziness and L sided gait preference Vertigo - presents as BPPV - head CT and CTA head/neck were done and negative for acute process - due to sudden onset, will check Brain MRI for completeness - IV fluids, PRN zofran, PRN meclizine - PT/OT ordered for vestibular exam cleared by PT for home discharge Elevated Troponin - mild bump in troponin, does not appear to be ACS; patient with murmur, consistent with HCOM - recent echo, shows the HCOM with regurg, but normal LVEF - trend trops -statin dose increased to 40mg. f/u with cardiology for stress test no chest pain, no shortness of breath Notes For Next Care Provider f/u with cardiology for stress test, event monitor f/u with cardiology for hypertonic cardiomyopathy Medication Changes From Visit lipitor dose increased to 40mg Admission HPI Per Admitting Provider This is a 74 year old female with a PMH of hypertrophic cardiomyopathy, HTN, HLD, cervical radiculopathy - coming in with dizziness and L sided gait preference. They brought her here via ambulance. in the ER, symptoms were consistent with vertigo initially, but gait was still an issue. head CT and CTA head/neck done and no acute issues noted. Labs drawn and a mild bump in troponin identified. Due to ongoing symptoms, decision made to admit. Discharge Exam VITALS: Reviewed. WEIGHT/BMI reviewed. GEN: Healthy appearing, well-developed, NAD. -Head: NC/AT; -Mouth and throat: MMM. Normal gums, mucosa, palate,. Good dentition. NECK: Supple, with no masses. CV: RRR, + for murmur LUNGS: CTAB, no w/r/c. ABD: Soft, NT/ND, NBS, no masses or organomegaly. : N/A SKIN: Warm, well perfused. No skin rashes or abnormal lesions. MSK: No deformities, Normal gait. EXT: No clubbing, cyanosis, or edema. NEURO: Ambulating with no limitations. Normal muscle strength and tone. No focal deficits. Discharge Plan Discharge Items Patient Disposition: Home - Self-Care Reason For Visit: DIZZINESS/VERTIGO Discharge Diagnosis: dizziness; vertigo. Condition on Discharge: Fair Activity: Resume your previous activity Lifting: Gradually increase as tolerated Non-emergency contact: Primary Care Provider Call non-emergency contact if: your symptoms worsen and you have a fever Follow-up/Referrals: Rani Vyas DO [Primary Care Provider] - 03/12/25 1:30 pm (Scheduled with Miesha Reyes PA-C on 03/12/25 at 1:30 pm) Diet: Heart Healthy Addtl Attending Provider Instructions: you will follow up with cardiology in 2-3 weeks you will work with cardiology about obtaining event monitor in addition, f/u with physical therapy about maneuver vertigo Pending Studies at Discharge: Yes Studies:: event monitor Stand-Alone Forms: My [facility], Smoking Cessation Medications and DC Order Prescriptions: New meclizine 25 mg Tablet 25 mg PO Q8 10 Days Qty: 30 0RF Saline Nasal Mist 3 % mist 1 spray intranasal TID 10 Days Qty: 126 0RF aspirin 81 mg capsule 81 mg PO DAILY 30 Days Qty: 30 0RF atorvastatin [Lipitor] 40 mg tablet 40 mg PO HS Qty: 30 0RF Rx Instructions: begin lipitor (atorvastatin 40mg), stop lipitor 20mg. Continued trimethoprim 100 mg tablet 100 mg PO ONCE PRN (Reason: postcoital ) Qty: 90 0RF Rx Instructions: after intercourse diltiazem HCl 300 mg capsule,extended release 24hr 300 mg PO QAM Qty: 90 3RF Macular Health Formula 5-1-7.5 mg capsule 2 cap PO BID Qty: 30 0RF metoprolol succinate 100 mg tablet extended release 24 hr 100 mg PO BID Qty: 180 3RF atorvastatin 20 mg tablet 20 mg PO QPM Qty: 90 3RF cholecalciferol (vitamin D3) [Vitamin D3] 2,000 unit Capsule 2,000 unit PO QAM [place]-3 350 mg-235 mg- 90 mg-597 mg Capsule,Delayed Release(Dr/Ec) 1 cap PO QAM glucosamine-chondroitin 500-400 mg tablet 1 tab PO BID calcium carbonate [Calcium 600] 600 mg calcium (1,500 mg) Tablet 600 mg PO QAM alendronate [Fosamax] 70 mg tablet 70 mg PO WK Rx Instructions: [facility] Discharge Orders: Discharge Order (Routine); Ordered 02/28/25 Ordered By: Ishmael Mclaughlin/Other Patient Handouts: Using an Event Monitor, BPPV Admission Data Admit Date/Time: 02/28/25 00:54 Attending Provider: Ishmael Del Angel Admit Provider: Kimberly Munoz Primary Care Provider: Rani Vyas Other Providers: Spencer Lyn Other Interventions: Discharge Summary Assessment (RN) Last Done: 02/28/25 19:45 Hospital Stay Data Consultations 02/28/25 00:49 ED Decision to Admit Stat Diagnostic Imagining Performed 02/27/25 22:37 CT angio head w con Stat CT angio neck with con Stat CT head/brain wo con Stat 02/28/25 00:54 MRI Brain [MR brain wo con] Stat Pending Results Patient Have Any Pending Studies at Discharge: Yes Discharge Instructions Given to Patient (Per Discharging Provider) you will follow up with cardiology in 2-3 weeks you will work with cardiology about obtaining event monitor in addition, f/u with physical therapy about maneuver vertigo Total Time Total Time Spent Total Time Spent (In Minutes): 45 minutes Coding Level of Care Code 21662 INP/OBS DISCH >30 MIN Diagnoses Vertigo R42 HOCM (hypertrophic obstructive cardiomyopathy) I42.1 Hypertrophic cardiomyopathy I42.2 Elevated troponin R79.89 Time Spent (min) 55
--- NOTE | 2025-03-02 05:39 | Electrocardiogram Report ---
Test Reason : Blood Pressure : */* mmHG Vent. Rate : 59 BPM Atrial Rate : 59 BPM P-R Int : 246 ms QRS Dur : 96 ms QT Int : 458 ms P-R-T Axes : 12 -7 -12 degrees QTcB Int : 453 ms Sinus bradycardia with 1st degree A-V block Minimal voltage criteria for LVH, may be normal variant ( [place] product ) Borderline ECG When compared with ECG of 14-Feb-2025 13:25, ST no longer depressed in Inferior leads Confirmed by Cory Conner ([id number]) on 03/02/2025 5:39:06 AM Referred By: REFERRED SELF Confirmed By: Cory Conner
== END 2025-02-28 20:10 | disposition home or self-care (01) | DRG 149 ==
LOC: ED 22:23 → 2S 02-28 00:54 → SUATTDRO 02-28 00:54 → 2S 02-28 03:12